=== PATIENT | female | born 1985 | race Caucasian/White ===

== ENCOUNTER 2019-01-19 02:39 | Emergency (ER) | payer OTHER ==
[2019-01-19 03:29] LABS: Urine Blood NEGATIVE (NEG); Urine Glucose NEGATIVE (NEG); Urine Protein 1+ (NEG)
[2019-01-19 04:04] LABS: Urine Bacteria <20 /HPF (<20); Urine Culture Reflex Order NOT NEEDED; Urine Mucus LIGHT /HPF (NONE SEEN); Urine RBC NONE SEEN /HPF (NONE SEEN)
[2019-01-19 04:12] LABS: Absolute Lymphocytes (CBC) 0.4 K/uL (0.7-4.9); Basophils % 0.3 % (0-1.3); Eosinophils % 0.2 % (0-4.4); Hematocrit 40.3 % (36.0-45.0); Lymphocytes % 2.1 % (15.3-44.8); MPV 8.1 fL (7.6-11.3); Monocytes % 4.1 % (3.3-12.3); RBC Red Blood Cell Count 4.38 M/uL (3.86-4.86)
[2019-01-19] MEDS ORDERED: MORPHINE 2 MG/ML SYR ONE ×2 (04:21→04:55)
[2019-01-19] MEDS ORDERED: ONDANSETRON 4 MG/2 ML VIAL ONE (04:22)
[2019-01-19] MEDS ORDERED: NA CHLORIDE 0.9% 1,000 ML ONE (04:22)
[2019-01-19 04:29] LABS: Albumin 3.9 g/dL (3.4-5.0); Bilirubin Direct 0.1 mg/dL (0-0.2); Bilirubin Total 0.3 mg/dL (0.2-1.0); Potassium 3.9 mmol/L (3.5-5.1); Protein, Total 7.1 g/dL (6.4-8.2)
[2019-01-19 05:10] LABS: Blood Morphology Comment NOT SEEN (NOT SEEN); Platelet Estimate ADEQ; Urine White Blood Cell Casts OK
[2019-01-19] MEDS ORDERED: MORPHINE 4 MG/ML SYR ONE (05:35)
--- NOTE | 2019-01-19 06:32 | ER ---
Nurse's Notes [facility] Name: Helen Oliver Age: 33 yrs Sex: Female : 1985 Arrival Date: 01/19/2019 Time: 02:43 Bed 15 Private MD: Diagnosis: Abdominal tenderness-enteritis;Elevated white blood cell count;Constipation Presentation: 01/19 02:45 Presenting complaint: Patient states: On Thursday I was nauseated and I threw up. ed1 Yesterday when I woke up I began having abdominal pain and a bad headache. Transition of care: patient was not received from another setting of care. Onset of symptoms was January 17, 2019. Risk Assessment: Do you want to hurt yourself or someone else? Patient reports no desire to harm self or others. Initial Sepsis Screen: Does the patient meet any 2 criteria? No. Patient's initial sepsis screen is negative. Does the patient have a suspected source of infection? No. Patient's initial sepsis screen is negative. Care prior to arrival: None. 02:45 Method Of Arrival: Ambulatory ed1 02:45 Acuity: [place] 3 ed1 Triage Assessment: 02:47 General: Appears uncomfortable, Behavior is calm, cooperative. Pain: Complains of pain ed1 in head and abdomen Pain currently is 9 out of 10 on a pain scale. GI: Reports nausea, vomiting. 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 - Social history:: Smoking status: Patient/guardian denies using tobacco. - Ebola Screening: : Patient negative for fever greater than or equal to 101.5 degrees Fahrenheit, and additional compatible Ebola Virus Disease symptoms Patient denies exposure to infectious person Patient denies travel to an Ebola-affected area in the 21 days before illness onset No symptoms or risks identified at this time. Screenin:15 Abuse screen: Denies threats or abuse. Nutritional screening: No deficits noted. jb4 Tuberculosis screening: No symptoms or risk factors identified. Fall Risk None identified. Assessment: 03:15 General: Appears in no apparent distress. uncomfortable, Behavior is calm, cooperative, jb4 appropriate for age. Pain: Complains of pain in abdomen, headache. Pain does not radiate. Pain currently is 10 out of 10 on a pain scale. Quality of pain is described as crampy, stabbing. Neuro: Level of Consciousness is awake, alert, obeys commands, Oriented to person, place, time, situation. Cardiovascular: Heart tones S1 S2 present Patient's skin is warm and dry. Respiratory: Airway is patent Respiratory effort is even, unlabored, Respiratory pattern is regular, symmetrical, Breath sounds are clear bilaterally. GI: Abdomen is flat, non-distended, Bowel sounds present X 4 quads. Reports nausea. : No signs and/or symptoms were reported regarding the genitourinary system. EENT: No signs and/or symptoms were reported regarding the EENT system. Derm: Skin is intact, Skin is pink, warm \T\ dry. Musculoskeletal: Circulation, motion, and sensation intact. 04:35 Reassessment: Patient appears in no apparent distress at this time. No changes from jb4 previously documented assessment. Patient and/or family updated on plan of care and expected duration. Pain level reassessed. Patient is alert, oriented x 3, equal unlabored respirations, skin warm/dry/pink. 04:43 Reassessment: Pt reports that first dose of Morphine did not help, second dose jb4 administered per MAR. 05:10 Reassessment: Patient appears in no apparent distress at this time. Patient and/or jb4 family updated on plan of care and expected duration. Pain level reassessed. Patient is alert, oriented x 3, equal unlabored respirations, skin warm/dry/pink. PT back from CT, reports second dose of pain medication did not work, provider notified, see MAR for orders. 06:00 Reassessment: Patient appears in no apparent distress at this time. Patient and/or jb4 family updated on plan of care and expected duration. Pain level reassessed. Patient is alert, oriented x 3, equal unlabored respirations, skin warm/dry/pink. resting in bed with significant other. Patient states feeling better. 06:55 Reassessment: Patient appears in no apparent distress at this time. Patient and/or jb4 family updated on plan of care and expected duration. Pain level reassessed. Patient is alert, oriented x 3, equal unlabored respirations, skin warm/dry/pink. Pt verbalized understanding of d/c and follow up instructions. Waiting for IV fluids to finish prior to d/c. 07:45 Reassessment: Patient appears in no apparent distress at this time. Patient and/or ph family updated on plan of care and expected duration. Pain level reassessed. Patient is alert, oriented x 3, equal unlabored respirations, skin warm/dry/pink. ERP at bedside to speak w/ pt, requesting that d/c be delayed to allow our radiologist to read CT to verify results, pt resting quietly at this time. Vital Signs: 02:47 BP 103 / 76; Pulse 114; Resp 18; Temp 99.1(TE); Pulse Ox 100% on R/A; Weight 56.7 kg; ed1 Height 5 ft. 6 in. (167.64 cm); Pain 9/10; 04:30 BP 107 / 69; Pulse 97; Resp 16; Pulse Ox 97% on R/A; jb4 05:30 BP 105 / 65; Pulse 107; Resp 18; Pulse Ox 100% on R/A; jb4 07:00 BP 99 / 68; Pulse 98; Resp 16; Pulse Ox 100% on R/A; jb4 02:47 Body Mass Index 20.18 (56.70 kg, 167.64 cm) ed1 ED Course: 02:43 Patient arrived in ED. ag3 02:46 Triage completed. ed1 02:47 Arm band placed on left wrist. ed1 03:08 Adrian Dasilva, RN is Primary Nurse. jb4 03:15 Patient has correct armband on for positive identification. Bed in low position. Call jb4 light in reach. Side rails up X 1. Pulse ox on. NIBP on. 03:19 Eloy Jackson MD is Attending Physician. aleksandr 03:45 Initial lab(s) drawn, by me, sent to lab. Inserted saline lock: 22 gauge in right jb4 antecubital area, using aseptic technique. Blood collected. 05:40 CT Abd/Pelvis - IV Contrast Only In Process Unspecified. EDMS 06:32 Gil Sargent MD is Referral Physician. aleksandr 07:09 No provider procedures requiring assistance completed. jb4 Administered Medications: 03:55 Drug: Zofran 4 mg Route: IVP; Site: right antecubital; jb4 04:25 Follow up: Response: No adverse reaction; Nausea is decreased jb4 03:57 Drug: NS 0.9% 1000 ml Route: IV; Rate: 1 bolus; Site: right antecubital; jb4 05:00 Follow up: Response: No adverse reaction; IV Status: Completed infusion; IV Intake: jb4 1000ml 03:58 Drug: morphine 2 mg Route: IVP; Site: right antecubital; jb4 04:10 Follow up: Response: No adverse reaction; Pain is unchanged, physician notified jb4 04:43 Drug: morphine 2 mg Route: IVP; Site: right antecubital; jb4 05:10 Follow up: Response: No adverse reaction; Pain is unchanged, physician notified jb4 05:25 Drug: morphine 4 mg Route: IVP; Site: right antecubital; jb4 05:55 Follow up: Response: No adverse reaction; Pain is decreased jb4 06:30 Drug: Cipro 400 mg Volume: 200 ml; Route: IVPB; Infused Over: 60 mins; Site: right jb4 antecubital; 07:45 Follow up: Response: No adverse reaction; IV Status: Completed infusion ph 06:30 Drug: Flagyl 500 mg Volume: 100 ml; Route: IVPB; Rate: 200 ml/hr; Infused Over: 30 jb4 mins; Site: right antecubital; 07:00 Follow up: Response: No adverse reaction; IV Status: Completed infusion; IV Intake: jb4 100ml Intake: 05:00 IV: 1000ml; Total: 1000ml. jb4 07:00 IV: 100ml; Total: 1100ml. jb4 Outcome: 06:31 Discharge ordered by MD. brandon 07:09 Discharge instructions given to patient, significant other, Instructed on discharge jb4 instructions, follow up and referral plans. medication usage, Demonstrated understanding of instructions, follow-up care, medications, Prescriptions given X 5 08:50 Patient left the ED. ph Signatures: Dispatcher [employer] EDEloy Vásquez MD MD cha Riggs, Erika RN RN ed1 Brenda Stewart RN RN ph Adrian Dasilva RN RN jb4 Xin Vaca ag3 Corrections: (The following items were deleted from the chart) 07:11 06:55 Reassessment: Patient appears in no apparent distress at this time. Patient jb4 and/or family updated on plan of care and expected duration. Pain level reassessed. Patient is alert, oriented x 3, equal unlabored respirations, skin warm/dry/pink. Pt verbalized understanding of d/c and follow up instructions. jb4
--- NOTE | 2019-01-19 06:32 | EDPHYS ---
Physician Documentation [facility] Name: Helen Oliver Age: 33 yrs Sex: Female : 1985 Arrival Date: 01/19/2019 Time: 02:43 Bed 15 Private MD: CELIA Physician Eloy Jackson HPI: 01/19 03:44 This 33 yrs old Female presents to ER via Ambulatory with complaints of aleksandr Nausea, Headache. 03:44 The patient presents to the emergency department with nausea, vomiting. Onset: The aleksandr symptoms/episode began/occurred just prior to arrival, this morning. Possible causes: unknown. The symptoms are aggravated by movement. Associated signs and symptoms: The patient has no apparent associated signs or symptoms. Severity of symptoms: At their worst the symptoms were mild moderate in the emergency department the symptoms are unchanged. The patient has not experienced similar symptoms in the past. 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 - Social history:: Smoking status: Patient/guardian denies using tobacco. - Ebola Screening: : Patient negative for fever greater than or equal to 101.5 degrees Fahrenheit, and additional compatible Ebola Virus Disease symptoms Patient denies exposure to infectious person Patient denies travel to an Ebola-affected area in the 21 days before illness onset No symptoms or risks identified at this time. ROS: 03:45 Constitutional: Negative for fever, chills, and weight loss, Eyes: Negative for injury, aleksandr pain, redness, and discharge, ENT: Negative for injury, pain, and discharge, Neck: Negative for injury, pain, and swelling, Cardiovascular: Negative for chest pain, palpitations, and edema, Respiratory: Negative for shortness of breath, cough, wheezing, and pleuritic chest pain, Back: Negative for injury and pain, : Negative for injury, bleeding, discharge, and swelling, MS/Extremity: Negative for injury and deformity, Skin: Negative for injury, rash, and discoloration, Neuro: Negative for headache, weakness, numbness, tingling, and seizure, Psych: Negative for depression, anxiety, suicide ideation, homicidal ideation, and hallucinations, Allergy/Immunology: Negative for hives, rash, and allergies, Endocrine: Negative for neck swelling, polydipsia, polyuria, polyphagia, and marked weight changes, Hematologic/Lymphatic: Negative for swollen nodes, abnormal bleeding, and unusual bruising. 03:45 Abdomen/GI: Positive for abdominal pain, of the right upper quadrant and right lower quadrant. Exam: 03:45 Constitutional: This is a well developed, well nourished patient who is awake, alert, aleksandr and in no acute distress. Head/Face: Normocephalic, atraumatic. Eyes: Pupils equal round and reactive to light, extra-ocular motions intact. Lids and lashes normal. Conjunctiva and sclera are non-icteric and not injected. Cornea within normal limits. Periorbital areas with no swelling, redness, or edema. ENT: Nares patent. No nasal discharge, no septal abnormalities noted. Tympanic membranes are normal and external auditory canals are clear. Oropharynx with no redness, swelling, or masses, exudates, or evidence of obstruction, uvula midline. Mucous membranes moist. Neck: Trachea midline, no thyromegaly or masses palpated, and no cervical lymphadenopathy. Supple, full range of motion without nuchal rigidity, or vertebral point tenderness. No Meningismus. Chest/axilla: Normal chest wall appearance and motion. Nontender with no deformity. No lesions are appreciated. Cardiovascular: Regular rate and rhythm with a normal S1 and S2. No gallops, murmurs, or rubs. Normal PMI, no JVD. No pulse deficits. Respiratory: Lungs have equal breath sounds bilaterally, clear to auscultation and percussion. No rales, rhonchi or wheezes noted. No increased work of breathing, no retractions or nasal flaring. Back: No spinal tenderness. No costovertebral tenderness. Full range of motion. Female : Normal external genitalia. Skin: Warm, dry with normal turgor. Normal color with no rashes, no lesions, and no evidence of cellulitis. MS/ Extremity: Pulses equal, no cyanosis. Neurovascular intact. Full, normal range of motion. Neuro: Awake and alert, GCS 15, oriented to person, place, time, and situation. Cranial nerves II-XII grossly intact. Motor strength 5/5 in all extremities. Sensory grossly intact. Cerebellar exam normal. Normal gait. Psych: Awake, alert, with orientation to person, place and time. Behavior, mood, and affect are within normal limits. 03:45 Abdomen/GI: Inspection: abdomen appears normal, Bowel sounds: normal, Palpation: moderate abdominal tenderness, in the right upper quadrant and right lower quadrant, Liver: no appreciated palpable abnormalities, Hernia: not appreciated. Vital Signs: 02:47 BP 103 / 76; Pulse 114; Resp 18; Temp 99.1(TE); Pulse Ox 100% on R/A; Weight 56.7 kg; ed1 Height 5 ft. 6 in. (167.64 cm); Pain 9/10; 04:30 BP 107 / 69; Pulse 97; Resp 16; Pulse Ox 97% on R/A; jb4 05:30 BP 105 / 65; Pulse 107; Resp 18; Pulse Ox 100% on R/A; jb4 07:00 BP 99 / 68; Pulse 98; Resp 16; Pulse Ox 100% on R/A; jb4 02:47 Body Mass Index 20.18 (56.70 kg, 167.64 cm) ed1 MDM: 03:20 Patient medically screened. [facility] 03:46 Data reviewed: vital signs, nurses notes, lab test result(s), EKG, radiologic studies. [facility] 01/19 02:47 Order name: Urine Culture [facility] 01/19 02:47 Order name: Urine Microscopic Only; Complete Time: 04:50 [facility] 01/19 03:10 Order name: Flu; Complete Time: 05:36 [facility] 01/19 03:21 Order name: Urine Dipstick--Ancillary (enter results); Complete Time: 03:42 [facility] 01/19 03:21 Order name: Urine --Ancillary (enter results); Complete Time: 03:42 [facility] 01/19 03:44 Order name: Basic Metabolic Panel [facility] 01/19 03:44 Order name: CBC with Diff [facility] 01/19 03:44 Order name: Hepatic Function; Complete Time: 04:50 [facility] 01/19 03:44 Order name: Lipase; Complete Time: 04:50 [facility] 01/19 03:44 Order name: CT Abd/Pelvis - IV Contrast Only [facility] 01/19 03:44 Order name: Basic Metabolic Panel; Complete Time: 04:50 [facility] 01/19 03:45 Order name: CBC with Automated Diff; Complete Time: 05:36 EDMS 01/19 05:11 Order name: CBC Smear Scan; Complete Time: 05:36 EDMS 01/19 02:47 Order name: Urine Test (obtain specimen); Complete Time: 03:19 snw 01/19 02:47 Order name: Urine Dipstick-Ancillary (obtain specimen); Complete Time: 03:20 snw 01/19 03:44 Order name: IV Saline Lock; Complete Time: 04:30 aleksandr 01/19 03:44 Order name: Labs collected and sent; Complete Time: 04:30 aleksandr Administered Medications: 03:55 Drug: Zofran 4 mg Route: IVP; Site: right antecubital; jb4 04:25 Follow up: Response: No adverse reaction; Nausea is decreased jb4 03:57 Drug: NS 0.9% 1000 ml Route: IV; Rate: 1 bolus; Site: right antecubital; 4 05:00 Follow up: Response: No adverse reaction; IV Status: Completed infusion; IV Intake: jb4 1000ml 03:58 Drug: morphine 2 mg Route: IVP; Site: right antecubital; jb4 04:10 Follow up: Response: No adverse reaction; Pain is unchanged, physician notified jb4 04:43 Drug: morphine 2 mg Route: IVP; Site: right antecubital; jb4 05:10 Follow up: Response: No adverse reaction; Pain is unchanged, physician notified jb4 05:25 Drug: morphine 4 mg Route: IVP; Site: right antecubital; jb4 05:55 Follow up: Response: No adverse reaction; Pain is decreased jb4 06:30 Drug: Cipro 400 mg Volume: 200 ml; Route: IVPB; Infused Over: 60 mins; Site: right jb4 antecubital; 07:45 Follow up: Response: No adverse reaction; IV Status: Completed infusion 06:30 Drug: Flagyl 500 mg Volume: 100 ml; Route: IVPB; Rate: 200 ml/hr; Infused Over: 30 jb4 mins; Site: right antecubital; 07:00 Follow up: Response: No adverse reaction; IV Status: Completed infusion; IV Intake: jb4 100ml Disposition: 01/19/19 06:31 Discharged to Home. Impression: Abdominal tenderness - enteritis, Elevated white blood cell count, Constipation. - Condition is Stable. - Discharge Instructions: Abdominal Pain, Adult, Constipation, Adult, Nausea and Vomiting, Adult, Abdominal Pain, Adult, [id number]. - Prescriptions for Bentyl 20 mg Oral Tablet - take 1 tablet by ORAL route every 6 hours As needed; 20 tablet. Flagyl 500 mg Oral Tablet - take 1 tablet by ORAL route every 8 hours for 7 days; 21 tablet. Pepcid 20 mg Oral Tablet - take 1 tablet by ORAL route every 12 hours for 10 days; 20 tablet. Zofran 4 mg Oral Tablet - take 1 tablet by ORAL route every 12 hours As needed; 20 tablet. Cipro 500 mg Oral Tablet - take 1 tablet by ORAL route every 12 hours for 7 days; 14 tablet. - Medication Reconciliation Form, Thank You Letter, Antibiotic Education, Prescription Opioid Use, Work release form form. - Follow up: Private Physician; When: 2 - 3 days; Reason: Recheck today's complaints, Continuance of care, Re-evaluation by your physician. Follow up: Gil Sargent MD; When: 2 - 3 days; Reason: Recheck today's complaints, Re-evaluation by your physician. - Problem is new. - Symptoms have improved. Signatures: Dispatcher [employer] [facility] Eloy Jackson MD MD cha Therrien, Shelly, SUPERVISOR FABRICATION-C SUPERVISOR FABRICATION-Csnw Shantel Hernandez, RN RN ed1 Brenda Stewart, RN RN Adrian Osman, RN RN jb4 Corrections: (The following items were deleted from the chart) 05:02 03:45 Creatinine for Radiology+C.LAB.BRZ ordered. [facility] 06:32 06:31 01/19/2019 06:31 Discharged to Home. Impression: Abdominal tenderness - aleksandr enteritis; Elevated white blood cell count; Constipation. Condition is Stable. Forms are Medication Reconciliation Form, Thank You Letter, Antibiotic Education, Prescription Opioid Use. Follow up: Private Physician; When: 2 - 3 days; Reason: Recheck today's complaints, Continuance of care, Re-evaluation by your physician. Problem is new. Symptoms have improved. aleksandr 08:50 06:32 01/19/2019 06:31 Discharged to Home. Impression: Abdominal tenderness - ph enteritis; Elevated white blood cell count; Constipation. Condition is Stable. Forms are Medication Reconciliation Form, Thank You Letter, Antibiotic Education, Prescription Opioid Use. Follow up: Private Physician; When: 2 - 3 days; Reason: Recheck today's complaints, Continuance of care, Re-evaluation by your physician. Follow up: Gil Sargent; When: 2 - 3 days; Reason: Recheck today's complaints, Re-evaluation by your physician. Problem is new. Symptoms have improved. aleksandr
[2019-01-19] MEDS ORDERED: CIPROFLOXACIN 400mg IV 400 MG/200 ML BAG IV ONE (06:43)
[2019-01-19] MEDS ORDERED: METRONIDAZOLE 500mg IVPB 500 MG/100 ML BAG IV ONE (06:44)
[2019-01-19 08:58] VITALS: TEMP 99.1
[2019-01-19 09:01] VITALS: O2SAT 100
[2019-01-19 09:03] VITALS: BP 99/68
--- NOTE | 2019-01-19 10:48 | RAD REPORT ---
EXAM DESCRIPTION: CT ABDOMEN AND PELVIS WITH CONTRAST. 01/19/2019 CLINICAL HISTORY: Nausea and vomiting with abdominal pain. Headache. COMPARISON: None. TECHNIQUE: Axial [address] imaging of the abdomen and pelvis performed utilizing intravenous contrast. Reformatted coronal and sagittal images reviewed. A dose reduction technique was utilized with automated exposure control according to patient size. FINDINGS: LOWER THORAX: Clear lung bases. Heart is normal in size. No pericardial fluid. ABDOMEN: LIVER/GALLBLADDER: Normal liver size and contour, and attenuation. Normal gallbladder. SPLEEN/PANCREAS: Normal spleen and pancreas. KIDNEYS/ADRENAL GLANDS: Normal adrenal glands. Mild dilatation of the right and left renal pelvis. N o collecting system stone. No renal mass. No perinephric edema. RETROPERITONEAL VESSELS/NODES: Normal aorta and inferior vena cava caliber. No adenopathy. Mesenteri c vessels appear normal. BOWEL: Normal stomach. Small bowel loops are normal in caliber. Normal appendix in the right lower q uadrant retrocecal position. Scattered atelectasis within the ascending and transverse colon. Moderat e stool within the descending colon. MESENTERY/PERITONEUM: No adenopathy. No ascites. No free air. PELVIS: BLADDER: Unremarkable bladder. GENITAL ORGANS: Mild endometrial fluid. Uterus otherwise unremarkable. Follicular changes are seen w ithin the ovaries. PERITONEUM: No pelvic free fluid or adenopathy. BONES AND SOFT TISSUES: Normal lumbosacral alignment. No subluxation. Intact bony pelvis. Normal hip s. IMPRESSION: 1. Enteritis. 2. Mild constipation. 3. Mild fullness of the right and left renal pelvis with no obstructing etiology. Electronically signed by: Daniela Blair DO 01/19/2019 5:56 AM CDT Due to temporary technical issues with the PACS/Fluency reporting system, reports are being signed by the in house radiologist as a courtesy to ensure prompt reporting. The interpreting radiologist is f ully responsible for the content of the report.
== END 2019-01-19 08:50 | disposition home or self-care (01) ==
LOC: ER 02:39
DX: K52.9 Noninfective gastroenteritis and colitis, unspecified (principal); D72.829 Elevated white blood cell count, unspecified; K59.00 Constipation, unspecified
CPT/HCPCS: 36415; 74177; 80048; 80076; 81003; 81015; 81025; 83690; 85025; 87086; 87088; 87804; 96361; 96365; 96368; 96375; 99284; J0744; J2270; J2405; J7030; Q9967